=== PATIENT | female | born 1945 | race Caucasian/White ===

== ENCOUNTER 2019-07-02 20:14 | Inpatient (IN) | payer MEDICARE ==
[~2019-07-02 20:14] MED LIST: Iopamidol 370 76% 100 ML VIAL ONE
[2019-07-02 22:28] LABS: #Eosinphils 0.5 thou/uL (0.0-0.7); #Monocytes 0.7 thou/uL (0.11-0.59); #Neutrophils 4.9 thou/uL (1.40-6.50); %Basophils 0.6 % (0.0-1.0); %Eosinophils 6.7 % (0.0-10.0); %Monocytes 8.7 % (0.0-10.0); %Neutrophils 60.1 % (42.0-75.0); Hemoglobin 12.8 g/dL (12.0-16.0); Mean Corpuscular HGB CONC 33.5 g/dL (32.0-36.0); Mean Corpuscular Hemoglobin 30.7 pg (27.0-31.0); Mean Corpuscular Volume 91.4 fL (78.0-98.0); Mean Platelet Volume 6.5 fL (7.4-10.4); Platelet Count 353 thou/uL (130-400); RBC Distribution Width 12.3 % (11.5-14.5); Red Blood Cell (RBC) Count 4.16 mill/uL (4.20-5.40); White Blood Cell (WBC) Count 8.2 thou/uL (4.8-10.8)
[2019-07-02 22:47] LABS: Anion Gap 10 mmol/L (10-20); BUN (Urea Nitrogen) 14 mg/dL (9.8-20.1); Calc. Creatinine Clearance 0 mL/min (70-130); Calcium 9.6 mg/dL (7.8-10.44); Carbon Dioxide 27 mmol/L (23-31); Chloride 104 mmol/L (98-107); Estimated GFR-MDRD 75; Glucose 106 mg/dL (83-110); Potassium 4.1 mmol/L (3.5-5.1); Sodium 137 mmol/L (136-145)
[2019-07-02] MEDS ORDERED: Ondansetron PF 4 MG/2 ML Vial ONE (23:24)
--- NOTE | 2019-07-03 00:19 | CT ---
CT ANGIOGRAM THORAX WITH CONTRAST: (CTA pulmonary angiogram) DATE: 07/02/2019 11:48 PM HISTORY: 73-year-old female with cough and hemoptysis. COMPARISON: 03/12/2019 TECHNIQUE: IV injection of iodinated contrast. Scan acquisition timing attempted to coincide with iodinated contrast bolus reaching maximal density in pulmonary arteries. 3-D MIP reconstructions. FINDINGS: No evidence of pulmonary thromboembolism. No thoracic aortic dissection. Ascending aorta 3.8 cm in di ameter. No pleural effusion, pneumothorax, cardiomegaly, or pericardial effusion. Mild mediastinal and bilateral hilar lymphadenopathy, new since prior CT. Again demonstrated is the broad platelike co nsolidation consistent with chronic atelectasis, containing bronchiectasis and air bronchogram, in the anterior segment of right upper lobe broadly abutting the minor fissure. This is chronic with no major interval change. Similar but much smaller such lesion abutting the anteromedial pleural surface of the anterior segmen t of left upper lobe. This is also unchanged. Again noted are the and numerous tiny noncalcified pulmonary nodules mostly at the periphery, of the right lower lobe and some at the adjacent portion of anterior segment right upper lobe. This is in tree in bud pattern. This appears similar to the prior CT. There is a new much smaller cluster of tree in bud nodularity in the left lower lobe. There is a small new triangular soft tissue density lesion at the lingula. Slightly larger new such l esion at lateral base of left lower lobe. IMPRESSION: 1) no evidence of pulmonary thromboembolism. 2) large region of tree in bud nodularity at right lower lobe, unchanged. 3) smaller new tree in bud nodularity in left lower lobe. 4) these findings are nonspecific, but one possibility is infection with atypical mycobacteria 5) chronic fusion, broad consolidation with air bronchogram and bronchiectasis at anterior segment ri ght upper lobe, unchanged. 6) small new lesions in the left lung, probably representing new mild pulmonary infectious processes. 7) ectasia of ascending thoracic aorta
[2019-07-03] MEDS ORDERED: Tranexamic Acid 1,000 MG/10 ML VIAL ONE (00:29)
[2019-07-03] MEDS ORDERED: Azithromycin 500 MG VIAL ONE (01:35)
[2019-07-03 04:12] LABS: Lactic Acid 0.7 mmol/L (0.5-2.2)
[2019-07-03 04:16] LABS: Anion Gap 10 mmol/L (10-20); BUN (Urea Nitrogen) 12 mg/dL (9.8-20.1); Calc. Creatinine Clearance 0 mL/min (70-130); Calcium 9.2 mg/dL (7.8-10.44); Carbon Dioxide 25 mmol/L (23-31); Chloride 106 mmol/L (98-107); Estimated GFR-MDRD 90; Glucose 106 mg/dL (83-110); Sodium 137 mmol/L (136-145)
[2019-07-03 04:22] LABS: Eosinophils 8 % (0-10); Hemoglobin 12.4 g/dL (12.0-16.0); Lymphocytes 31 % (21-51); MDiff Complete? YES; Mean Corpuscular HGB CONC 33.5 g/dL (32.0-36.0); Mean Corpuscular Hemoglobin 30.6 pg (27.0-31.0); Mean Corpuscular Volume 91.5 fL (78.0-98.0); Mean Platelet Volume 6.5 fL (7.4-10.4); Monocytes 2 % (0-10); Neutrophil 59 % (42-75); Platelet Count 340 thou/uL (130-400); Platelet Morphology Comment Appears Adequate; RBC Distribution Width 12.2 % (11.5-14.5); RBC Morphology Normal; Red Blood Cell (RBC) Count 4.03 mill/uL (4.20-5.40)
[2019-07-03 10:43] VITALS: BMI 17.8
[2019-07-03 12:46] LABS: Hemoglobin 12.4 g/dL (12.0-16.0)
[2019-07-03] MEDS ORDERED: guaiFENesin/Dextromethorphan 10 ML UDCUP PO SCH (14:00)
[2019-07-03] MEDS ORDERED: Lidocaine 4% PF 5 ML AMP NEB SCH (14:00)
[2019-07-03] MEDS ORDERED: Acetaminophen 325 MG TAB PO PRN (14:20)
[2019-07-03] MEDS: Sodium Chloride 0.9% 1,000 ML IV SCH (14:35)
[2019-07-03] MEDS: Guaifenesin DM 100-10/5 ML UDCUP PO SCH ×2 (14:40→20:27)
--- NOTE | 2019-07-03 17:12 | HP ---
PRIMARY CARE PROVIDER: Dr. Gaitan. CHIEF COMPLAINT: Hemoptysis. HISTORY OF PRESENT ILLNESS: Ms. Byrne is a pleasant 73-year-old lady with a history of mycobacterium avium complex infection. She reports having multiple episodes of hemoptysis since yesterday. She reports recent cough with thick and yellow sputum prior to the onset of hemoptysis. She presented to the emergency room because of ongoing hemoptysis. She denies any chest pain or shortness of breath. She denies any fevers or chills. She denies any nausea or vomiting. She was first diagnosed with MAC 3 years ago and was treated at that time. She was diagnosed with MAC again in March and also treated. She was scheduled to see her co chairman in [place] today. REVIEW OF SYSTEMS: All systems were reviewed and found to be negative except for the pertinent positives mentioned above. PAST MEDICAL HISTORY: Hypothyroidism and MAC infection. PAST SURGICAL HISTORY: Lung biopsy and left arm surgery. SOCIAL HISTORY: The patient denies tobacco use, alcohol use, or recreational drug use. CODE STATUS: She is full code. FAMILY HISTORY: Tuberculosis and lung cancer in her father. ALLERGIES: BACTRIM, CIPROFLOXACIN, DEMEROL, SULFAMETHOXAZOLE, AND TRIMETHOPRIM. CURRENT MEDICATIONS: 1. Rifampin 600 mg three times a week. 2. Ethambutol 1200 mg three times a week. 3. Thyroid 30 mg daily. 4. Azithromycin 500 mg three times a week. PHYSICAL EXAMINATION: GENERAL: On examination, Ms. Byrne is awake and alert, not in acute distress. VITAL SIGNS: Blood pressure is 138/68, pulse 98, respiratory rate 18, and oxygen saturation 100% on room air. She is afebrile. EYES: No scleral icterus, no conjunctival pallor. ENT: Moist mucosal membranes. No oropharyngeal erythema or exudates. NECK: Supple, nontender. Trachea is midline. RESPIRATORY: Accessory muscles of breathing are not active. Chest wall movements are symmetric bilaterally. Lungs are clear to auscultation without wheeze, rhonchi, or crepitations. CARDIOVASCULAR: S1 and S2 are heard, regular. Peripheral pulses palpable. No carotid bruit. No pericardial rub. ABDOMEN: Soft, nontender. Bowel sounds are heard. NEUROLOGIC: Cranial nerves 2 through 12 are intact. MUSCULOSKELETAL: Power is 5/5 in all 4 extremities. SKIN: No rashes or subcutaneous nodules. LYMPHATIC: No cervical lymphadenopathy. PSYCHIATRIC: Normal mood, normal affect. The patient is oriented to person, place, and time. LABORATORY DATA AND INVESTIGATIONS: Reviewed. She has normal white count, normal hemoglobin, normal platelet count, INR 1.0, and normal chem 7. She had CT angiogram of the chest, which did not show any evidence of pulmonary thromboembolism. She has stable large region of tree-in-bud nodularity at right lower lobe. She has smaller new tree-in-bud nodularity in the left lower lobe. She has small new lesions in the left lung, probably representing new mild pulmonary infectious processes. She also has ectasia of ascending thoracic aorta. ASSESSMENT AND PLAN: Ms. Byrne is a pleasant 73-year-old lady, who was seen at [facility] on July 03, 2019. Her problem list includes: 1. Hemoptysis: Ms. Byrne is presenting with hemoptysis, etiology unknown. Hemoglobin has been stable. We will admit her to the hospital. We will follow hemoglobin and hematocrit and transfuse as needed. We will consult Pulmonary Critical Care Medicine Service for opinion and help with management. 2. Mycobacterium avium complex infection: The patient reports being compliant with her medications. We will consult Infectious Disease Service for opinion and help with management. 3. Hypothyroidism: Continue thyroid replacement therapy. Many thanks for allowing me to participate in your patient's care. Please feel free to contact me with any questions or concerns. LEVEL OF RISK: Moderate. LEVEL OF COMPLEXITY: Moderate. Job ID: [id number]
--- NOTE | 2019-07-03 18:00 | CON ---
DATE OF CONSULTATION: HISTORY OF PRESENT ILLNESS: Patricia Byrne is a 73-year-old female, who presented to the ER after coughing of moderate amount of hemoptysis. She has at least what appears to be 250 mL of bright red blood in a cup. She was doing well until the last several months. She developed fever, low-grade, and cough, received several rounds of antibiotics and steroid shots. She eventually went to [place], [place], where diagnosis of MAC was made and she was started on a previous treatment, which included ethambutol 1200 mg, Zithromax 500 mg, rifampin 300 mg Tuesday, Tuesday and Tuesday. She is due to follow up today when she presented with the hemoptysis. She denies any chest pain and denies any difficulty breathing. ALLERGIES: SHE HAS MULTIPLE ALLERGIES, CIPRO AND SULFA. PAST MEDICAL HISTORY: Extensive past medical history is well outlined. Pertinent for hypothyroidism, depression, anxiety. PAST SURGICAL HISTORY: Bronchoscopy, breast biopsies, arm surgery, D and C, colonoscopy. SOCIAL HISTORY: Alcohol, none. Tobacco, none. REVIEW OF SYSTEMS: Otherwise, ten point negative. PHYSICAL EXAMINATION: GENERAL: In no distress. VITAL SIGNS: Sats are 100% on room air, respiratory rate 18, temperature 97, pulse 90, blood pressure 138/68. CHEST: Bilateral rhonchi and crackles. CARDIAC: Normal S1 and S2. No gallops. ABDOMEN: No masses. LABORATORY DATA: White count 7000, H and H 12 and 36, platelet count is normal. Lytes are normal. IMPRESSION: Bilateral bronchiectasis and mycobacterium avium complex. RECOMMENDATIONS: Restart home medication and steroids. Supportive care. Diagnostic bronchoscopy tomorrow. Eventually back to [place]. There is a new inhaled treatment for refractory MAC, which can be started in [place], [place]. Consultation note, 70 minutes, 50% direct patient care. Job ID: [id number]
[2019-07-03] MEDS: methylPREDNISolone Sod Succ 40 MG VIAL IVP SCH ×2 (20:28→22:02)
[2019-07-03 21:14] LABS: Hemoglobin 12.9 g/dL (12.0-16.0)
--- NOTE | 2019-07-03 22:44 | CON ---
DATE OF CONSULTATION: REASON FOR CONSULTATION: History of mycobacterium avium complex lung infection with previous treatment and remission induction, now with what appears to be a recurrence with hemoptysis. HISTORY OF PRESENT ILLNESS: A 73-year-old who has a history of pulmonary mycobacterium avium complex infection. Her disease is mostly nodular disease with some bronchiectasis, but she did not have any history of cavitary disease. The patient had been treated by Dr. Cerrato in [place] in 2016 until mid 2016 and had converted her sputum to negative. She had been doing very well until March of this year. Her last sputum culture was from December I believe according to Dr. Cerrato and it had been negative. In March, she started having symptoms again and she was restarted on treatment, but apparently no repeat AFB cultures have been submitted at least to Dr. Cerrato's knowledge and now she is admitted with hemoptysis. The patient had been already on ethambutol, rifampin, and azithromycin for the past 3 months. She is scheduled for bronchoscopy tomorrow by Dr. Pisano. Currently, she is awake and appears in no distress, coughing intermittently. No headaches. No visual symptoms, sore throat, odynophagia, dysphagia. No chest pain. No abdominal pain or diarrhea. No genitourinary symptoms. No joint symptoms. No neurological symptoms. PAST MEDICAL HISTORY: Includes hypothyroidism, pulmonary atypical mycobacterial infection. SOCIAL HISTORY: Never smoker, but she has secondhand exposure heavily from her . No alcoholic beverage use. ALLERGIES: BACTRIM, CIPROFLOXACIN, MEPERIDINE. CURRENT MEDICATIONS: 1. Tylenol. 2. DuoNeb. 3. Zithromax. 4. Rifampin. 5. Ethambutol. 6. Azithromycin. FAMILY HISTORY: Noncontributory. PHYSICAL EXAMINATION: VITAL SIGNS: Essentially normal, appears in no distress. SKIN: Normal, no lymphadenopathy. HEENT: Ocular movements are conjugate. Nasal passages are patent. Oral cavity normal. NECK: Supple. No jugular vein distention or carotid bruits. LUNGS: With few scattered rhonchi and crackles in various areas of her lungs, right and left hemithorax. HEART: S1, S2. Regular rate. No S3 or S4. No murmurs. ABDOMEN: Soft, not distended or tender. No ascites. No bladder distention, no joint inflammatory activity. No edema. Pulses are 1+ in dorsalis pedis. Cognitive function appears to be intact. LABORATORY DATA: CBC was essentially normal. The CT scan demonstrated a large region of tree-in-bud nodularity in right lower lobe, unchanged. There is a new tree-in-bud nodularity in the left lower lobe. There is broad consultation with air bronchogram and bronchiectasis in the right upper lobe and there is a mild small new area of pulmonary involvement in the left lung as well. ASSESSMENT: Mycobacterium avium complex infection of lung with previous treatment with remission induction in 2017, now with recurrence reportedly. I do not have copies of her latest acid-fast bacilli cultures from the from the sputum. Dr. Cerrato in [place] recalled only one last culture in December this year, but not more recently. DISCUSSION: This episode may represent an alternate diagnosis, which is associated with hemoptysis. Atypical mycobacterial lung infections are frequently associated with hemoptysis and sometimes they are significant enough to require bronchial artery embolization. It does not necessarily mean that the current regimen is failing and I would recommend waiting for the repeat cultures from the bronchoscopic sample before a decision is made to alter her regimen. Evidently, if they are still positive, then we may consider adding liposomal amikacin by the inhaled route. In the other hand, if the cultures are negative, then continuation of the current regimen would be considered as the preferred strategy. She does have secondhand cigarette smoking exposure and therefore is at risk for malignancies, which will be evaluated during this procedure tomorrow. Job ID: [id number]
[2019-07-04] MEDS: Guaifenesin DM 100-10/5 ML UDCUP PO SCH ×4 (00:43→21:41)
[2019-07-04 05:53] LABS: #Lymphocytes 1.5 thou/uL (1.20-3.40); #Monocytes 0.2 thou/uL (0.11-0.59); #Neutrophils 4.7 thou/uL (1.40-6.50); %Basophils 0.5 % (0.0-1.0); %Eosinophils 0.7 % (0.0-10.0); %Lymphocytes 23.4 % (21.0-51.0); %Monocytes 2.8 % (0.0-10.0); %Neutrophils 72.7 % (42.0-75.0); Hemoglobin 12.3 g/dL (12.0-16.0); Mean Corpuscular HGB CONC 32.7 g/dL (32.0-36.0); Mean Corpuscular Hemoglobin 30.1 pg (27.0-31.0); Mean Corpuscular Volume 92.2 fL (78.0-98.0); Mean Platelet Volume 6.5 fL (7.4-10.4); Platelet Count 359 thou/uL (130-400); RBC Distribution Width 12.3 % (11.5-14.5); Red Blood Cell (RBC) Count 4.08 mill/uL (4.20-5.40); White Blood Cell (WBC) Count 6.4 thou/uL (4.8-10.8)
[2019-07-04 06:15] LABS: Anion Gap 13 mmol/L (10-20); BUN (Urea Nitrogen) 9 mg/dL (9.8-20.1); Calc. Creatinine Clearance 60 mL/min (70-130); Calcium 8.8 mg/dL (7.8-10.44); Carbon Dioxide 22 mmol/L (23-31); Chloride 108 mmol/L (98-107); Estimated GFR-MDRD 90; Glucose 119 mg/dL (83-110); Sodium 139 mmol/L (136-145)
[2019-07-04] MEDS: methylPREDNISolone Sod Succ 40 MG VIAL IVP SCH (08:32)
[2019-07-04] MEDS ORDERED: AZITHROMYCIN 500 MG PO SCH (09:00)
[2019-07-04] MEDS ORDERED: MULTIVIT MIN PO SCH (09:00)
[2019-07-04] MEDS ORDERED: VIT K PO SCH (09:00)
[2019-07-04] MEDS ORDERED: CA CARB PO SCH (09:00)
[2019-07-04] MEDS ORDERED: EAC PO SCH (09:00)
[2019-07-04] MEDS ORDERED: Azithromycin 250 MG TAB PO SCH (09:00)
[2019-07-04] MEDS ORDERED: CRANBERRY 400 MG PO SCH (09:00)
[2019-07-04] MEDS ORDERED: Ethambutol HCl 400 MG TAB PO SCH (09:00)
[2019-07-04] MEDS ORDERED: Rifampin 300 MG CAP PO SCH ×2 (09:00)
[2019-07-04] MEDS ORDERED: [UNRECOGNIZED DRUG - OTHER] PO SCH (09:00)
--- NOTE | 2019-07-04 09:12 | PRG ---
DATE OF SERVICE: 07/04/2019 SUBJECTIVE: This morning, she is better. Quantity of blood coughing up is less. OBJECTIVE: VITAL SIGNS: Temperature 97, pulse 75, respiratory rate 18, and blood pressure 101/62. CHEST: Minimal rhonchi and crackles. CARDIAC: Normal S1 and S2. No gallop. ABDOMEN: No mass. LABORATORY DATA: H and H are stable, 12 and 37. Lytes are normal. IMPRESSION: Bilateral bronchiectasis, mycobacterium avium complex, and moderate hemoptysis secondary to above. PLAN: Diagnostic bronchoscopy today. Hopefully, if the bleeding subsided, she can be discharged home in the next 24 to 48 hours. Job ID: [id number]
[2019-07-04] MEDS ORDERED: Fentanyl 100 MCG/2 ML VIAL ONE (10:00)
[2019-07-04] MEDS ORDERED: Midazolam HCl 2 mg/2 ml Vial ONE (10:00)
[2019-07-04] MEDS ORDERED: Lidocaine 1% (PF) 30 ML VIAL ONE (10:12)
[2019-07-04] MEDS ORDERED: EPINEPHrine 1 MG/10 ML Abboject SYRINGE ONE (10:32)
--- NOTE | 2019-07-04 12:11 | OP ---
DATE OF PROCEDURE: 07/04/2019 PROCEDURE PERFORMED: Diagnostic bronchoscopy. INDICATION: Moderate hemoptysis, rule out endobronchial disease. POSTBRONCHOSCOPY DIAGNOSES: Bleeding arising from the right middle lobe orifice, but no obvious endobronchial disease was seen. More than likely, it is from the bronchiectatic area in the right middle lobe. DESCRIPTION OF PROCEDURE: After informed consent, the video Olympus bronchoscope was passed via the oral cavity using a bite block, posterior pharynx normal. Vocal cords normal. Entering the trachea, there was copious amounts of bright red blood coming out of the right lung. Right upper lobe was unremarkable. No endobronchial disease was seen. Right bronchus intermedius was normal. Right middle lobe, there was some bright red blood oozing, but no endobronchial obstruction was seen. Area was lavaged with normal saline and epinephrine. A total of 10 mL of 1:10,000 was instilled in the area. Rest of the basilar segments were normal. The left lung inspected thereafter. It has also had spilled over blood, but no evidence of any fresh bleeding was seen in the area. Both lungs were lavaged with normal saline until completely clear. The middle lobe on the right side was reinspected again here. Additional 5 mL of 1:10,000 epinephrine was instilled both in the right lung and the left lung this time. Reinspected and relavaged with normal saline with total of 300 mL of normal saline was done with no further bleeding seen. IMPRESSION: Moderate hemoptysis arising from the middle lobe secondary to extensive bronchiectasis secondary to mycobacterium avium complex infection. All the washings will be sent for Gram stain, C and S, AFB smear and culture, fungal smear and culture, and cytology. The patient otherwise tolerated the procedure well. Job ID: [id number]
[2019-07-04] MEDS: Thyroid 30 MG TAB PO SCH (13:04)
[2019-07-04] MEDS: Multivit, Therapeutic 1 TAB PO SCH (13:58)
[2019-07-04] MEDS: Cyanocobalamin (Vitamin B-12) 1,000 MCG TAB PO SCH (13:58)
[2019-07-04] MEDS: Ubidecarenone 50 MG CAP PO SCH (14:04)
[2019-07-04] MEDS: Sodium Chloride 0.9% 1,000 ML IV SCH ×2 (14:04→21:42)
--- NOTE | 2019-07-04 16:48 | PDOC.HOSPP ---
- Subjective Encounter Date: 07/04/19 Encounter Time: 15:00 Subjective: Pt seen for followup re: hemoptysis. Hemoptysis volume has decreased. No fevers. - Objective Vital Signs & Weight: Vital Signs (12 hours) Temp Pulse Resp BP Pulse Ox 07/04/19 12:03 97.8 F 93 20 120/68 93 L 07/04/19 08:00 98 07/04/19 07:57 97.7 F 74 18 101/62 98 Weight Admit Weight 107 lb Weight 107 lb Result Diagrams: 07/04/19 04:59 07/04/19 04:59 Additional Labs: Accuchecks 07/03/19 19:43 POC Glucose 129 H Labs and MARs reviewed by wa Hospitalist ROS - Review of Systems Respiratory: reports: cough, hemoptysis. denies: dry, shortness of breath, SOB with excertion, pleuritic pain, sputum, wheezing Cardiovascular: denies: chest pain, palpitations, orthopnea, paroxysmal noc. dyspnea, edema, light headedness - Medication Medications: Active Medications Generic Name Dose Route Start Last Admin Trade Name Freq PRN Reason Stop Dose Admin Cholecalciferol 2,000 units 07/04/19 09:00 07/04/19 13:57 Vitamin D3 PO Not Given DAILY [facility] Coenzyme Q10 100 mg 07/04/19 09:00 07/04/19 14:04 Coenzyme Q10 PO Not Given DAILY [facility] Cyanocobalamin 2,500 mcg 07/04/19 09:00 07/04/19 13:58 Vitamin B-12 PO Not Given DAILY [facility] Ethambutol HCl 1,200 mg 07/04/19 09:00 07/04/19 13:43 Myambutol PO 1,200 mg MWF [facility] Administration Guaifenesin/Dextromethorphan 5 ml 07/03/19 14:45 07/04/19 13:52 Robitussin Dm PO 5 ml Q6H [facility] Administration Sodium Chloride 1,000 mls @ 50 mls/hr 07/03/19 14:00 07/04/19 14:04 Normal Saline 0.9% IV Not Given .Q20H [facility] Multivitamins 1 tab 07/04/19 09:00 07/04/19 13:58 Theragran PO Not Given DAILY [facility] Rifampin 600 mg 07/04/19 09:00 07/04/19 13:04 Rifadin PO 600 mg MWF [facility] Administration Sodium Chloride 10 ml 07/03/19 21:00 07/04/19 14:03 Flush - Normal Saline IVF 10 ml Q12HR [facility] Administration Thyroid 30 mg 07/04/19 09:00 07/04/19 13:04 Luana Thyroid PO 30 mg DAILY [facility] Administration - Exam General Appearance: NAD Eye: anicteric sclera ENT: moist mucosa Neck: supple Heart: RRR Respiratory: CTAB Gastrointestinal: soft, non-tender Extremities: no cyanosis Neurological: no weakness Psychiatric: normal affect, normal behavior Hosp A/P (1) Hemoptysis Code(s): R04.2 - HEMOPTYSIS Status: Acute (2) Mycobacterium avium infection Code(s): A31.0 - PULMONARY MYCOBACTERIAL INFECTION Status: Chronic (3) Hypothyroidism Code(s): E03.9 - HYPOTHYROIDISM, UNSPECIFIED Status: Chronic - Plan continue antibiotics, out of bed/ambulate Continue antibiotics as below. s/p bronchoscopy. Hb stable. Continue thyroid replacement therapy.
[2019-07-04] MEDS ORDERED: Ondansetron PF 4 MG/2 ML Vial IVP PRN (19:56)
[2019-07-05] MEDS: Guaifenesin DM 100-10/5 ML UDCUP PO SCH ×2 (02:53→08:20)
[2019-07-05] MEDS: Thyroid 30 MG TAB PO SCH (08:17)
[2019-07-05] MEDS: Cyanocobalamin (Vitamin B-12) 1,000 MCG TAB PO SCH (08:19)
[2019-07-05] MEDS: Ubidecarenone 50 MG CAP PO SCH (08:20)
[2019-07-05] MEDS: Multivit, Therapeutic 1 TAB PO SCH (08:20)
--- NOTE | 2019-07-05 09:35 | PRG ---
DATE OF SERVICE: 07/05/2019 SUBJECTIVE: This morning, she is awake, alert, responsive. No further hemoptysis. She was somewhat nauseated yesterday, that is improved. OBJECTIVE: VITAL SIGNS: Saturations are 98%, pulse 80, respirations 16, blood pressure 99/66. CHEST: There is no wheezing, crackles. CARDIAC: Normal S1, S2. No gallops. ABDOMEN: No masses. IMPRESSION: 1. Moderate hemoptysis, probably arising from the right middle lobe, bronchiectatic changes. 2. Mycobacterium avium complex on three-drug therapy. PLAN: Home. P.r.n. cough syrup. She can be seen by her physician in [place], [place]. To see Dr. Pisano only as needed in the office. Job ID: [id number]
[2019-07-05 09:43] LABS: #Basophils 0.1 thou/uL (0.0-0.2); #Eosinphils 0.1 thou/uL (0.0-0.7); #Lymphocytes 1.7 thou/uL (1.20-3.40); #Monocytes 0.7 thou/uL (0.11-0.59); #Neutrophils 8.5 thou/uL (1.40-6.50); %Basophils 0.5 % (0.0-1.0); %Eosinophils 0.7 % (0.0-10.0); %Lymphocytes 15.3 % (21.0-51.0); %Monocytes 6.7 % (0.0-10.0); %Neutrophils 76.8 % (42.0-75.0); Hemoglobin 11.6 g/dL (12.0-16.0); Mean Corpuscular HGB CONC 32.4 g/dL (32.0-36.0); Mean Corpuscular Volume 92.3 fL (78.0-98.0); Mean Platelet Volume 6.3 fL (7.4-10.4); Platelet Count 344 thou/uL (130-400); RBC Distribution Width 12.4 % (11.5-14.5); Red Blood Cell (RBC) Count 3.87 mill/uL (4.20-5.40); White Blood Cell (WBC) Count 11.1 thou/uL (4.8-10.8)
[2019-07-05 10:02] LABS: Anion Gap 12 mmol/L (10-20); BUN (Urea Nitrogen) 8 mg/dL (9.8-20.1); Calc. Creatinine Clearance 57 mL/min (70-130); Calcium 9.1 mg/dL (7.8-10.44); Carbon Dioxide 25 mmol/L (23-31); Chloride 106 mmol/L (98-107); Estimated GFR-MDRD 85; Glucose 94 mg/dL (83-110); Potassium 3.5 mmol/L (3.5-5.1); Sodium 139 mmol/L (136-145)
[2019-07-05 13:09] VITALS: BP 118/75; TEMP 97.7
--- NOTE | 2019-07-06 02:43 | DIS ---
DATE OF ADMISSION: 07/03/2019 DATE OF DISCHARGE: 07/05/2019 PRIMARY CARE PROVIDER: Dr. Brody Gaitan. DISCHARGE DIAGNOSES: 1. Hemoptysis. 2. Bronchiectasis. CONDITION OF PATIENT ON THE DAY OF DISCHARGE: Stable. I assessed Ms. Byrne on the day of discharge. She denies any chest pain or shortness of breath. Vital signs are stable. S1 and S2 are heard, regular. Lungs are clear to auscultation bilaterally. CONSULTATIONS DURING THIS HOSPITALIZATION: Infectious Diseases, Dr. Masterson and Pulmonary and Critical Care Medicine, Dr. Pisano. FOLLOWUP APPOINTMENTS: The patient is advised to follow up with primary care provider in 3 days time. She is also advised to follow up with Dr. Pisano as needed. HOSPITAL COURSE: Ms. Byrne is a pleasant 73-year-old lady, who was admitted to [facility] on July 03, 2019, for hemoptysis. Please refer to my history and physical note dated July 03, 2019, for further details. She was seen by infectious Disease Service. She was continued on her antibiotics. She was also seen by the Pulmonary and Critical Care Medicine Service. She underwent bronchoscopy on July 04. She has been advised p.r.n. cough syrup in addition to her pre-admission home medications as dictated on my history and physical note dated July 03, 2019. She improved clinically. Hemoptysis decreased. Most likely source of hemoptysis was felt to be bronchiectasis, according to Pulmonary Service. At the time of this dictation, the bronchial washing pathology report was pending. She is advised to follow up with her primary care provider or with Pulmonology Service for the same. On the day of discharge, she has white count 11,100, hemoglobin 11.6, platelet count 344,000, normal electrolytes and normal creatinine. Many thanks for allowing me to participate in your patient's care. Please feel free to contact me with any questions or concerns. DISCHARGE DESTINATION: Home. TIME SPENT: Total amount of time spent coordinating this discharge: 22 minutes. Job ID: [id number]
== END 2019-07-05 12:58 | disposition home or self-care (01) | DRG 191 ==
LOC: ERS 20:14 → ERHOLD 07-03 01:23 → OBSVTOIN 07-03 01:23 → T4-A 07-03 09:34
PROVIDERS: ADMIT Hospitalist; ATTEND Hospitalist
PROC: 0B9D8ZX Drainage of Right Middle Lung Lobe, Via Natural or Artificial Opening Endoscopic, Diagnostic (ICD-10-PCS; principal; 2019-07-03)
DX: J47.0 Bronchiectasis with acute lower respiratory infection (principal); R04.2 Hemoptysis; A31.0 Pulmonary mycobacterial infection; E03.9 Hypothyroidism, unspecified; Z77.22 Contact with and (suspected) exposure to environmental tobacco smoke (acute) (chronic); Z88.1 Allergy status to other antibiotic agents; Z88.2 Allergy status to sulfonamides; Z79.899 Other long term (current) drug therapy
CPT/HCPCS: 36415; 36416; 71275; 80048; 83605; 85025; 85610; 85730; 87070; 87102; 87116; 87205; 87206; 88112; 88305; 96365; 96375; 99152; J0171; J0456; J2001; J2250; J2405; J2920; J3010; J7620; Q9967

== ENCOUNTER 2021-01-13 15:58 | Outpatient (CLI) | payer MEDICARE | END 2021-01-13 15:59 | disposition home or self-care (01) | LOC: BICCT 15:58 | PROVIDERS: ATTEND Internal Medicine | DX: J47.9 Bronchiectasis, uncomplicated (principal); A31.0 Pulmonary mycobacterial infection; R91.8 Other nonspecific abnormal finding of lung field; N28.9 Disorder of kidney and ureter, unspecified; E07.89 Other specified disorders of thyroid | CPT/HCPCS: 71250 ==

== ENCOUNTER 2021-06-03 11:29 | Outpatient (CLI) | payer MEDICARE | END 2021-06-03 11:30 | disposition home or self-care (01) | LOC: BICRAD 11:29 | PROVIDERS: ATTEND Internal Medicine Critical Care Medicine | DX: R06.00 Dyspnea, unspecified (principal); J44.9 Chronic obstructive pulmonary disease, unspecified | CPT/HCPCS: 71046 ==

== ENCOUNTER 2021-10-01 09:35 | Outpatient (CLI) | payer MEDICARE | END 2021-10-01 09:36 | disposition home or self-care (01) | LOC: RAD 09:35 | PROVIDERS: ATTEND Internal Medicine Critical Care Medicine | DX: R06.00 Dyspnea, unspecified (principal) | CPT/HCPCS: 71046 ==

== ENCOUNTER 2022-08-23 19:53 | Inpatient (IN) | payer OTHER, MEDICARE ==
[2022-08-23] MEDS ORDERED: Morphine 4 MG/ML VIAL ONE ×2 (20:39→23:57)
[2022-08-23] MEDS ORDERED: Ondansetron PF 4 MG/2 ML Vial ONE ×2 (20:40→23:57)
[2022-08-23] MEDS ORDERED: Ketorolac Tromethamine 30 MG/ML VIAL ONE (20:40)
[2022-08-23 21:02] LABS: #Eosinphils 0.1 thou/uL (0.0-0.7); #Lymphocytes 0.9 thou/uL (1.20-3.40); #Monocytes 0.6 thou/uL (0.11-0.59); #Neutrophils 12.5 thou/uL (1.40-6.50); %Basophils 0.2 % (0.0-1.0); %Eosinophils 0.8 % (0.0-10.0); %Monocytes 4.4 % (0.0-10.0); %Neutrophils 88.6 % (42.0-75.0); Hemoglobin 13.3 g/dL (12.0-16.0); Mean Corpuscular HGB CONC 32.5 g/dL (32.0-36.0); Mean Corpuscular Hemoglobin 31.5 pg (27.0-31.0); Mean Corpuscular Volume 96.9 fl (78.0-98.0); Mean Platelet Volume 6.7 fL (7.4-10.4); Platelet Count 298 thou/uL (130-400); RBC Distribution Width 11.5 % (11.5-14.5); Red Blood Cell (RBC) Count 4.22 mill/uL (4.20-5.40); White Blood Cell (WBC) Count 14.1 thou/uL (4.8-10.8)
[2022-08-23] MEDS ORDERED: Ondansetron PF 4 MG/2 ML Vial IVP PRN (21:13)
[2022-08-23] MEDS ORDERED: TETANUS, DIPHTHERIA TOX,ADULT (TDVAX) 0.5 ML VIAL IM ONE (21:13)
[2022-08-23] MEDS ORDERED: Promethazine HCl 25 MG/ML VIAL IM PRN (21:13)
[2022-08-23] MEDS ORDERED: hydrALAZINE 20 MG/ML VIAL SLOW IVP PRN (21:13)
[2022-08-23 21:15] LABS: ALT (SGPT) 16 U/L (8-55); AST (SGOT) 17 U/L (5-34); Albumin 3.9 g/dL (3.4-4.8); Alkaline Phosphatase 81 U/L (40-110); Anion Gap 14 mmol/L (10-20); BUN (Urea Nitrogen) 12 mg/dL (9.8-20.1); Bilirubin, Total 0.3 mg/dL (0.2-1.2); Calc. Creatinine Clearance 0 mL/min (70-130); Carbon Dioxide 25 mmol/L (23-31); Chloride 105 mmol/L (98-107); Estimated GFR 82; Glucose 124 mg/dL (83-110); Potassium 3.7 mmol/L (3.5-5.1); Protein, Total 6.9 g/dL (5.8-8.1); Sodium 140 mmol/L (136-145)
[2022-08-23] MEDS ORDERED: Sodium Chloride 0.9% 1,000 ML IV SCH (21:15)
[2022-08-23] MEDS ORDERED: traMADol HCl 50 MG TAB PO PRN (21:16)
[2022-08-23] MEDS ORDERED: Ketorolac Tromethamine 30 MG/ML VIAL IVP SCH (21:30)
[2022-08-24] MEDS: Acetaminophen 500 MG TAB PO SCH ×4 (00:51→17:29)
[2022-08-24] MEDS: Cyclobenzaprine 10 MG TAB PO PRN (00:52)
[2022-08-24] MEDS: traMADol HCl 50 MG TAB PO SCH ×4 (00:52→17:30)
[2022-08-24 00:58] VITALS: BMI 19.0
[2022-08-24 05:41] LABS: #Lymphocytes 1.1 thou/uL (1.20-3.40); #Monocytes 0.8 thou/uL (0.11-0.59); #Neutrophils 7.4 thou/uL (1.40-6.50); %Basophils 0.1 % (0.0-1.0); %Eosinophils 0.1 % (0.0-10.0); %Lymphocytes 11.8 % (21.0-51.0); %Monocytes 8.3 % (0.0-10.0); %Neutrophils 79.7 % (42.0-75.0); Hemoglobin 11.3 g/dL (12.0-16.0); Mean Corpuscular HGB CONC 32.5 g/dL (32.0-36.0); Mean Corpuscular Hemoglobin 31.3 pg (27.0-31.0); Mean Corpuscular Volume 96.4 fl (78.0-98.0); Platelet Count 258 thou/uL (130-400); RBC Distribution Width 11.6 % (11.5-14.5); Red Blood Cell (RBC) Count 3.62 mill/uL (4.20-5.40); White Blood Cell (WBC) Count 9.3 thou/uL (4.8-10.8)
[2022-08-24] MEDS: Ketorolac Tromethamine 30 MG/ML VIAL IVP SCH ×3 (05:48→17:29)
[2022-08-24 05:52] LABS: Anion Gap 8 mmol/L (10-20); BUN (Urea Nitrogen) 13 mg/dL (9.8-20.1); Calc. Creatinine Clearance 52 mL/min (70-130); Calcium 8.1 mg/dL (7.8-10.44); Carbon Dioxide 25 mmol/L (23-31); Chloride 107 mmol/L (98-107); Estimated GFR 90; Glucose 123 mg/dL (83-110); Phosphorus 3.4 mg/dL (2.3-4.7); Sodium 136 mmol/L (136-145)
[2022-08-24 06:04] LABS: INR-International Normal Ratio 1.1; Prothrombin Time 14.6 sec (12.0-14.7)
[2022-08-24] MEDS ORDERED: CEFAZOLIN 2 GM in Sodium Chloride 0.9% 100 ML IVPB SCH (07:15)
[2022-08-24 07:29] LABS: SARS-CoV-2 NAA Rapid Test Not Detected (NotDetected)
[2022-08-24] MEDS: Famotidine/PF 20 mg/2ml Vial SLOW IVP SCH ×2 (08:52→21:32)
[2022-08-24] MEDS: Polyethylene Glycol 3350 17 GM Packet PO SCH (08:52)
[2022-08-24] MEDS: Senokot S 8.6-50 MG TAB PO SCH ×2 (08:52→21:32)
[2022-08-24] MEDS: Morphine 4 MG/ML VIAL SLOW IVP PRN ×2 (09:27→15:44)
[2022-08-24] MEDS ORDERED: NEOSTIGMINE 3 MG/3 ML SYR 3 MG/3 ML SYRINGE ONE (11:48)
[2022-08-24] MEDS ORDERED: PROPOFOL 200 MG/20 ML VIAL ONE (11:48)
[2022-08-24] MEDS ORDERED: Ondansetron PF 4 MG/2 ML Vial ONE (11:48)
[2022-08-24] MEDS ORDERED: Glycopyrrolate 0.2 MG/ML 5 ML SYRINGE ONE (11:48)
[2022-08-24] MEDS ORDERED: Dexamethasone 20 MG/5 ML VIAL ONE (11:48)
[2022-08-24] MEDS ORDERED: PHENYLEPHRINE-NS 100 MCG/ML 10 ML SYRINGE ONE (11:48)
[2022-08-24] MEDS ORDERED: Rocuronium Bromide 10 MG/ML (10ML VIAL) ONE (11:48)
[2022-08-24] MEDS ORDERED: Ketorolac Tromethamine 30 MG/ML VIAL ONE ×2 (11:50→13:59)
[2022-08-24] MEDS ORDERED: Sodium Chloride 0.9% 0 ML ONE (12:08)
[2022-08-24] MEDS ORDERED: CEFAZOLIN 2 GM VIAL ONE (12:08)
[2022-08-24] MEDS ORDERED: fentaNYL PF 100 MCG/2 ML SYRINGE ONE (12:26)
[2022-08-24] MEDS ORDERED: FENTANYL 50 MCG/ML 1 ML VIAL ONE (13:40)
[2022-08-24] MEDS ORDERED: Ondansetron HCl/PF 4 MG/2 ML Vial IVP PRN (14:26)
[2022-08-24] MEDS ORDERED: Promethazine HCl 25 MG/ML VIAL IVPB PRN (14:26)
[2022-08-24] MEDS ORDERED: Promethazine HCl 25 MG/ML VIAL IM PRN (14:26)
[2022-08-24] MEDS: CEFAZOLIN 2 GM in Sodium Chloride 0.9% 100 ML IVPB SCH (21:32)
[2022-08-25] MEDS: Ketorolac Tromethamine 30 MG/ML VIAL IVP SCH ×5 (00:13→23:08)
[2022-08-25] MEDS: traMADol HCl 50 MG TAB PO SCH ×5 (00:14→23:24)
[2022-08-25] MEDS: Acetaminophen 500 MG TAB PO SCH ×5 (00:14→23:25)
[2022-08-25] MEDS: Senokot S 8.6-50 MG TAB PO SCH ×3 (00:22→20:18)
[2022-08-25] MEDS: CEFAZOLIN 2 GM in Sodium Chloride 0.9% 100 ML IVPB SCH (03:12)
[2022-08-25] MEDS: Polyethylene Glycol 3350 17 GM Packet PO SCH (09:45)
[2022-08-25] MEDS: Aspirin 81 mg Enteric Coated Tablet PO SCH ×2 (09:45→20:19)
[2022-08-25] MEDS: Famotidine/PF 20 mg/2ml Vial SLOW IVP SCH (09:46)
[2022-08-25] MEDS: Thyroid 30 MG TAB PO SCH (09:50)
[2022-08-25 12:57] LABS: Bacteria/HPF None Seen HPF (None Seen); Bilirubin Negative (Negative); Blood, Urine Negative (Negative); Clarity Clear (Clear); Glucose, Urine (Dipstick) Normal (Negative); Ketone, Urine Trace mg/dL (Negative); Leukocyte Negative Leu/uL (Negative); Nitrite Negative (Negative); Protein, Urine (Dipstick) 30 mg/dL (Neg-Trace); RBC/HPF 0-3 HPF (0-3); Specific Gravity, Urine 1.041 (1.002-1.036); Squamous Epithelial 0-3 HPF (0-3); Urobilinogen Normal mg/dL (Less than 2); WBC/HPF 0-3 HPF (0-3)
[2022-08-25 12:59] LABS: Urine Culture Reflex No No
[2022-08-25] MEDS: Famotidine 20 MG TAB PO SCH (20:19)
[2022-08-26] MEDS: Ketorolac Tromethamine 30 MG/ML VIAL IVP SCH ×5 (05:15→23:02)
[2022-08-26] MEDS: Acetaminophen 500 MG TAB PO SCH ×4 (05:58→23:05)
[2022-08-26] MEDS: traMADol HCl 50 MG TAB PO SCH ×4 (05:59→23:05)
[2022-08-26 06:01] LABS: #Eosinphils 0.2 thou/uL (0.0-0.7); #Lymphocytes 1.9 thou/uL (1.20-3.40); #Monocytes 0.7 thou/uL (0.11-0.59); #Neutrophils 3.9 thou/uL (1.40-6.50); %Basophils 0.4 % (0.0-1.0); %Lymphocytes 27.9 % (21.0-51.0); %Neutrophils 58.7 % (42.0-75.0); Hemoglobin 8.9 g/dL (12.0-16.0); Mean Corpuscular HGB CONC 31.9 g/dL (32.0-36.0); Mean Corpuscular Hemoglobin 30.8 pg (27.0-31.0); Mean Corpuscular Volume 96.5 fl (78.0-98.0); Mean Platelet Volume 7.3 fL (7.4-10.4); Platelet Count 226 thou/uL (130-400); RBC Distribution Width 11.5 % (11.5-14.5); White Blood Cell (WBC) Count 6.6 thou/uL (4.8-10.8)
[2022-08-26] MEDS: Thyroid 30 MG TAB PO SCH (06:01)
[2022-08-26 06:16] LABS: Anion Gap 9 mmol/L (10-20); BUN (Urea Nitrogen) 12 mg/dL (9.8-20.1); Calc. Creatinine Clearance 56 mL/min (70-130); Calcium 8.3 mg/dL (7.8-10.44); Carbon Dioxide 23 mmol/L (23-31); Chloride 106 mmol/L (98-107); Estimated GFR 92; Glucose 91 mg/dL (83-110); Phosphorus 2.3 mg/dL (2.3-4.7); Sodium 134 mmol/L (136-145)
[2022-08-26] MEDS: Polyethylene Glycol 3350 17 GM Packet PO SCH (09:05)
[2022-08-26] MEDS: Senokot S 8.6-50 MG TAB PO SCH ×2 (09:05→20:27)
[2022-08-26] MEDS: Aspirin 81 mg Enteric Coated Tablet PO SCH ×2 (09:05→20:27)
[2022-08-26] MEDS: Famotidine 20 MG TAB PO SCH ×2 (09:05→20:25)
[2022-08-26] MEDS ORDERED: Ondansetron ODT 4 MG TAB PO PRN (12:40)
[2022-08-26] MEDS: Cyclobenzaprine 10 MG TAB PO PRN (13:00)
[2022-08-26] MEDS: Guaifenesin DM 100-10/5 ML UDCUP PO PRN ×2 (15:25→20:27)
[2022-08-27] MEDS: Ketorolac Tromethamine 30 MG/ML VIAL IVP SCH (05:53)
[2022-08-27] MEDS: traMADol HCl 50 MG TAB PO SCH (05:56)
[2022-08-27] MEDS: Acetaminophen 500 MG TAB PO SCH ×2 (05:57→12:11)
[2022-08-27 05:59] LABS: #Basophils 0.1 thou/uL (0.0-0.2); #Eosinphils 0.6 thou/uL (0.0-0.7); #Monocytes 0.6 thou/uL (0.11-0.59); #Neutrophils 3.2 thou/uL (1.40-6.50); %Eosinophils 9.2 % (0.0-10.0); %Lymphocytes 31.2 % (21.0-51.0); %Monocytes 9.4 % (0.0-10.0); %Neutrophils 49.2 % (42.0-75.0); Hemoglobin 9.6 g/dL (12.0-16.0); Mean Corpuscular HGB CONC 32.6 g/dL (32.0-36.0); Mean Corpuscular Hemoglobin 31.8 pg (27.0-31.0); Mean Corpuscular Volume 97.5 fl (78.0-98.0); Platelet Count 269 thou/uL (130-400); RBC Distribution Width 11.4 % (11.5-14.5); Red Blood Cell (RBC) Count 3.03 mill/uL (4.20-5.40); White Blood Cell (WBC) Count 6.5 thou/uL (4.8-10.8)
[2022-08-27] MEDS ORDERED: Thyroid 30 MG TAB PO SCH (06:00)
[2022-08-27 08:10] LABS: Anion Gap 7 mmol/L (10-20); BUN (Urea Nitrogen) 7 mg/dL (9.8-20.1); Calc. Creatinine Clearance 60 mL/min (70-130); Calcium 8.3 mg/dL (7.8-10.44); Carbon Dioxide 27 mmol/L (23-31); Chloride 108 mmol/L (98-107); Estimated GFR 94; Glucose 88 mg/dL (83-110); Phosphorus 2.9 mg/dL (2.3-4.7); Sodium 138 mmol/L (136-145)
[2022-08-27] MEDS ORDERED: Ibuprofen 200 MG TAB PO PRN (09:11)
[2022-08-27] MEDS: Aspirin 81 mg Enteric Coated Tablet PO SCH (09:28)
[2022-08-27] MEDS: Famotidine 20 MG TAB PO SCH (09:28)
[2022-08-27] MEDS: Senokot S 8.6-50 MG TAB PO SCH (09:28)
[2022-08-27] MEDS: Polyethylene Glycol 3350 17 GM Packet PO SCH (09:28)
[2022-08-27] MEDS ORDERED: traMADol HCl 50 MG TAB PO SCH (12:00)
[2022-08-27 12:07] VITALS: BP 104/58; TEMP 98.3
== END 2022-08-27 14:40 | disposition swing bed (61) | DRG 482 ==
LOC: ERS 19:53 → SURG A 21:13
PROVIDERS: ADMIT Surgery; ATTEND Surgery
PROC: 0QS706Z Reposition Left Upper Femur with Intramedullary Internal Fixation Device, Open Approach (ICD-10-PCS; principal; 2022-08-24)
DX: S72.092A Other fracture of head and neck of left femur, initial encounter for closed fracture (principal); W19.XXXA Unspecified fall, initial encounter; E03.9 Hypothyroidism, unspecified; M81.0 Age-related osteoporosis without current pathological fracture; Z88.1 Allergy status to other antibiotic agents; Z88.2 Allergy status to sulfonamides; Z88.8 Allergy status to other drugs, medicaments and biological substances; Z98.890 Other specified postprocedural states; Y92.89 Other specified places as the place of occurrence of the external cause
CPT/HCPCS: 36415; 71045; 72170; 80048; 80053; 81001; 82533; 83735; 84100; 85025; 85610; 85730; 86850; 86900; 86901; 93005; 96374; 96375; 96376; C1713; G0390; J1100; J1885; J2270; J2405; J2704; J3010; J3490; J7050; Q0162; S0028; U0002